=== PATIENT | male | born 1995 | race African-American/Black ===

== ENCOUNTER 2017-01-07 19:54 | Emergency (ER) | payer OTHER ==
[~2017-01-07 19:54] MED LIST: BROMFED DM PO; KEFLEX; MOBIC PO; NO MEDICATIONS; ROBAXIN500 MG PO
[2017-01-07] MEDS ORDERED: NO MEDICATIONS (20:03)
[2017-01-07 20:45] LABS: BASOPHIL# 0.1 X10e3 (0-0.3); BASOPHIL% 0.8 % (0-2.5); EOSINOPHIL# 0.2 X10e3 (0-0.7); EOSINOPHIL% 3.4 % (0.0-7.0); HEMATOCRIT 49.4 % (38.0-50.0); LYMPHOCYTE# 2.4 X10e3 (1.0-3.5); MEAN CELL VOLUME 88.1 FL (83-96); MEAN CORPUSCULAR HEMOGLOBIN 30.2 PG (28-34); MEAN CORPUSCULAR HGB CONC 34.3 g/dL (30-36); MEAN PLATELET VOLUME 8.7 FL (6.5-11.5); MONOCYTE# 0.8 X10e3 (0-1.0); MONOCYTE% 11.8 % (3.0-12.0); NEUTROPHIL# 3.1 X10e3 (1.5-7.1); PLATELET COUNT 223 X10e3 (140-420); RED BLOOD COUNT 5.61 X10e (3.90-5.60); RED CELL DISTRIBUTION WIDTH 12.9 % (11.0-15.5); WHITE BLOOD COUNT 6.6 X10e3 (4.0-10.5)
[2017-01-07 20:47] LABS: DIFF IND NO
[2017-01-07 20:54] LABS: ALBUMIN SERUM 4.3 g/dL (3.5-5.0); BILIRUBIN, DIRECT 0.2 mg/dL (0.0-0.2); BILIRUBIN,INDIRECT 0.6 mg/dL (0.0-0.9); BILIRUBIN,TOTAL 0.8 mg/dL (0.2-2.0); BUN/CREATININE RATIO 11.81; CALCIUM SERUM 9.2 mg/dL (8.4-10.2); CREATININE SERUM 1.1 mg/dL (0.6-1.4); GLOM FILT RATE Estimated 109.9 mL/min (>60); POTASSIUM 4.3 mmol/L (3.5-5.1); PROTEIN TOTAL SERUM 7.2 g/dL (6.0-8.3)
[2017-01-07 21:11] LABS: URINE SOURCE CLEAN CATCH
[2017-01-07 21:17] LABS: URINE APPEARANCE CLEAR; URINE BILIRUBIN NEG (NEG); URINE BLOOD TRACE-INTACT (NEG); URINE COLOR YELLOW; URINE GLUCOSE NEG (NORM); URINE KETONE NEG (NEG); URINE LEUKOCYTE ESTERASE NEG (NEG); URINE NITRATE NEG (NEG); URINE PROTEIN NEG (NEG); URINE SPECIFIC GRAVITY 1.025 (1.003-1.035)
[2017-01-07 21:18] LABS: MICRO INDICATED? YES
[2017-01-07 21:26] LABS: CULTURE INDICATED? NO; URINE BACTERIA NEG (NEG); URINE WBC 0-2 /[HPF] (0-5)
[2017-01-10 17:50] LABS: CHLAMYDIA TRACH Not Detected (Not Detected); N GONOR Not Detected (Not Detected)
== END 2017-01-07 21:13 | disposition home or self-care (01) ==
LOC: SED 19:54
PROVIDERS: Physician Assistant
DX: J02.9 Acute pharyngitis, unspecified (principal)
CPT/HCPCS: 36415; 80048; 80076; 81003; 85025; 86308; 87491; 87591; 87651; 99283

== ENCOUNTER 2017-01-10 20:23 | Emergency (ER) | payer OTHER ==
--- NOTE | ~2017-01-10 | US115 ---
[facility]. [facility] A Service of [facility] RADIOLOGY TEXT RESULTS PATIENT: GALINA HENSON JR LOCATION: SED : [birth year] UNIT #: [id number] AGE: [address]: Mikael Carrillo MD SEX: M ORDER DR: [id number] [place] [id number] MR#: [id number] Acc #: [id number] NAME: GALINA HENSON JR : 1995 SEX: M STUDY DATE/TIME: 01/10/2017 UNIT: SED ROOM: STUDY DESCRIPTION: US Scrotum and Contents Attending Physician: Mikael Carrillo M.D. Ordering Physician: Mikael Carrillo M.D. Primary Care Physician: Primary Care Physician No MEDICAL IMAGING REPORT This report is preliminary unless electronic signature is present. EXAM Scrotum ultrasound and contents. DATE OF EXAM 01/10/2017, at 22:10. INDICATIONS Left side testicular pain for the last 4 days intermittently. TECHNIQUE Wynn-scale, color flow, and spectral Doppler waveform analysis was performed of the scrotum and contents. COMPARISON No comparison. FINDINGS Please see scrotum ultrasound performed 01/10/2017 for results. Dictated by... Shahab Dorman Jr., M.D. THIS IS AN ELECTRONICALLY VERIFIED REPORT Shahab Dorman Jr., M.D. at 01/12/2017 10:12 PM PATRICIA/grace TD: 01/10/2017 23:14 JOB #: [id number] [facility]. [facility] A Service of [facility] RADIOLOGY TEXT RESULTS PATIENT: GALINA HENSON JR LOCATION: SED : 94 UNIT #: [id number] AGE: [address]: Mikael Carrillo MD SEX: M ORDER DR: MEDICAL IMAGING REPORT Page 1 of 1
[2017-01-10 21:52] LABS: URINE SOURCE CLEAN CATCH
[2017-01-10 21:54] LABS: URINE APPEARANCE CLEAR; URINE BLOOD TRACE-INTACT (NEG); URINE COLOR YELLOW; URINE GLUCOSE NEG (NORM); URINE KETONE TRACE (NEG); URINE LEUKOCYTE ESTERASE NEG (NEG); URINE NITRATE NEG (NEG); URINE PROTEIN TRACE (NEG); URINE SPECIFIC GRAVITY 1.025 (1.003-1.035)
[2017-01-10 21:55] LABS: MICRO INDICATED? YES; URINE BILIRUBIN NEG (NEG)
[2017-01-10 21:57] LABS: CULTURE INDICATED? YES; URINE BACTERIA 1+ (NEG); URINE MUCUS PRESENT; URINE SQUAMOUS EPITHELIAL CELL FEW /[HPF]; URINE WBC 0-2 /[HPF] (0-5)
== END 2017-01-10 23:54 | disposition home or self-care (01) ==
LOC: SED 20:23
PROVIDERS: Emergency Medicine
DX: N45.1 Epididymitis (principal); Z86.19 Personal history of other infectious and parasitic diseases
CPT/HCPCS: 76870; 81003; 87086; 93976; 99284; J0696

== ENCOUNTER 2017-05-08 18:25 | Emergency (ER) | payer OTHER ==
[~2017-05-08] VITALS: Ht 175.3 cm; Wt 70.3 kg
[2017-05-08 18:55] LABS: URINE SOURCE CLEAN CATCH
[2017-05-08 18:57] LABS: MICRO INDICATED? YES; URINE APPEARANCE CLEAR; URINE BILIRUBIN NEG (NEG); URINE BLOOD TRACE-INTACT (NEG); URINE COLOR YELLOW; URINE GLUCOSE NEG (NORM); URINE KETONE NEG (NEG); URINE LEUKOCYTE ESTERASE NEG (NEG); URINE NITRATE NEG (NEG); URINE PROTEIN NEG (NEG); URINE SPECIFIC GRAVITY 1.015 (1.003-1.035); URINE UROBILINOGEN 0.2 MG/DL (NORM)
[2017-05-08 19:01] LABS: CULTURE INDICATED? NO; URINE BACTERIA NEG (NEG); URINE SQUAMOUS EPITHELIAL CELL FEW /[HPF]; URINE WBC 0-2 /[HPF] (0-5)
== END 2017-05-08 20:00 | disposition home or self-care (01) ==
LOC: SED 18:25 → CED 19:06 → SED 19:06
PROVIDERS: Emergency Medicine
DX: N34.1 Nonspecific urethritis (principal)
CPT/HCPCS: 81003; 96372; 99283; J0696